=== PATIENT | female | born 1970 | race Caucasian/White ===

== ENCOUNTER 2016-03-13 09:19 | Emergency (ER) ==
[2016-03-13 09:29] VITALS: BP 162/88; TEMP 99.7; BMI 30.7
[2016-03-13] MEDS ORDERED: ROCEPHIN 1 GM in SODIUM CHLORIDE 50 ML IV STA (09:43)
--- NOTE | 2016-03-13 09:44 | ED.PDOC ---
General ED Provider: Dr. ABHAY HESS Chief Complaint: Tooth Problem Stated Complaint: L face swollen; pain. On Clinda since yesterday AM (Dentist) . Much worse this AM. Time Seen by Physician: 09:35 Mode of Arrival: Walk-In Information Source: Patient Exam Limitations: No limitations Primary Care Provider: JAYNE GALINDO Nursing and Triage Documentation Reviewed and Agree: Yes Review of Systems - Review Of Systems Constitutional: Reports: No symptoms Eyes: Reports: No symptoms Ears, Nose, Mouth, Throat: Reports: No symptoms Respiratory: Reports: No symptoms All Other Systems: Reviewed and Negative Past Medical History - Past Medical History Previously Healthy: Yes Endocrine: Reports: Unknown Cardiovascular: Reports: Unknown Respiratory: Reports: Unknown Hematological: Reports: Unknown Gastrointestinal: Reports: Unknown Genitourinary: Reports: Unknown Neuro/Psych: Reports: Unknown Musculoskeletal: Reports: Unknown Cancer: Reports: Unknown Last Menstrual Period: february 27 - Surgical History General Surgical History: Reports: Unknown - Family History Family History: Reports: Unknown - Social History Smoking Status: Current every day smoker, Heavy tobacco smoker Hx Substance Use: No Alcohol Screening: None Physical Exam - Physical Exam Appearance: Ill-appearing Ill-appearing: Mild Pain Distress: Mild Eyes: TOR, EOMI, Conjunctiva clear ENT: Erythema (Gingival upper Left; swelling L maxillary) Respiratory: Airway patent Skin: Warm, Dry, Normal color Neurological: Sensation intact, Motor intact Psychiatric: Affect appropriate, Mood appropriate Interpretation - Radiology Interpretation Radiology Interpretation By: Radiologist Radiology Results: Positive Exam Interpreted: Other (CT maxilofacial) Xray Comments: findings involving L maxillary dentition; swelling L face Critical Care Note - Critical Care Note Total Time (mins): 35 Course - Course Vital Signs: Temp Pulse Resp BP Pulse Ox 03/13/16 09:20 99.7 F H 94 H 18 162/88 H 98 Departure - Departure Time of Disposition: 11:35 Disposition: HOME SELF-CARE Discharge Problem: Abscess, dental Instructions: Dental Abscess (ED) Condition: Good Pt referred to PMD for follow-up: Yes (Follow up with dentist) Additional Instructions: Continue Clindamyacin - take the Keflex prescription added today. Use your pain medications as previously instructed by provider or dentist. May also use lidocaine as per prescription. Allergies/Adverse Reactions: Allergies No Known Allergies Allergy (Verified 03/13/16 09:27) Home Medications: Ambulatory Orders Gabapentin [Neurontin] 300 mg PO TID #90 tab-cap 11/29/14 Hydrocodone/Acetaminophen [[place] 7.5-325 Tablet] 1 each PO TID PRN #90 tab-cap 11/29/14 Clindamycin HCl 300 mg PO TID 03/13/16 Disposition Discussed With: Patient
[2016-03-13] MEDS ORDERED: MORPHINE 2 MG/ML SYRINGE IVP STA ×2 (09:50→10:44)
[2016-03-13] MEDS ORDERED: ZOFRAN ODT PO STA (09:50)
[2016-03-13] MEDS ORDERED: ROCEPHIN ONE (09:54)
--- NOTE | 2016-03-13 10:26 | CT ---
EXAM: CT scan of the facial bones without contrast HISTORY: Left facial pain swelling TECHNIQUE: Imaging of the facial bones was performed without contrast. Axial images and sagittal a nd coronal as reconstructions were provided for interpretation. FINDINGS: The orbital floor, inferior orbital rim appear intact. No acute fractures are seen withi n the medial and lateral ramirez of the orbits. The nasal bones, and zygoma appear intact. No acute fractures are seen within the maxilla and mandible. There is mucosal thickening seen within the lef t maxillary sinus. There is prominent left-sided facial swelling. The findings are seen along the left side of the louie ek and along the mandible.. Apical lucent changes are seen along the dentition of the left maxilla. There is a carious appearance to the first left maxillary molar seen on sagittal reconstruction im age number 21 and 22. There is near complete destruction of the crown of the first left maxillary mo lar. The parotid glands, and submandibular glands appear normal. No acute abnormalities are seen within the floor the mouth. The soft tissues of the nasopharynx, tonsils, epiglottis, and tongue base appe ar normal. IMPRESSION: There is prominent left-sided facial swelling likely due to odontogenic infection. Per iapical lucencies are identified along the dentition of the left maxilla. There are prominent cario us changes seen along the first left maxillary molar as described above. No definite fluid collecti ons are seen within the soft tissues of the face.
== END 2016-03-13 11:50 | disposition home or self-care (01) ==
LOC: ED 09:19
DX: K04.7 Periapical abscess without sinus (principal); F17.210 Nicotine dependence, cigarettes, uncomplicated
CPT/HCPCS: 96365; 96376; 99283

== ENCOUNTER 2018-05-09 08:26 | Outpatient (CLI) | END 2018-05-09 08:27 | disposition home or self-care (01) | LOC: LAB 08:26 | PROVIDERS: ATTEND Nurse Practitioner | DX: Z79.1 Long term (current) use of non-steroidal anti-inflammatories (NSAID) (principal) | CPT/HCPCS: 36415; 80053; 82248; 84100 ==

== ENCOUNTER 2018-10-08 12:50 | Emergency (ER) ==
[2018-10-08 12:58] VITALS: BP 126/85; TEMP 99.1; BMI 32.3
--- NOTE | 2018-10-08 13:31 | DI ---
EXAM: Four views of the right knee. History: Right knee pain. Findings: No acute fracture or dislocation. Old healed fracture deformity of the right proximal fib ular shaft. Joint spaces are preserved. Mild superior patellar enthesiopathy. Impression: No acute osseous abnormality
--- NOTE | 2018-10-08 13:43 | ED.PDOC ---
General ED Provider: Dr. CHELITA JOSUE-ER Chief Complaint: Knee Pain/Injury Stated Complaint: i hurt my knee Time Seen by Physician: 12:55 Mode of Arrival: Walk-In Information Source: Patient Exam Limitations: No limitations Primary Care Provider: YONNY PERKINS Nursing and Triage Documentation Reviewed and Agree: Yes Does patient meet sepsis criteria?: No System Inflammatory Response Syndrome: Not Applicable Sepsis Protocol: For patient's 13 years and over: Temp is 96.8 and below OR 101 and greater Pulse >90 BPM Resp >20/minute Acutely Altered Mental Status Are patient's symptoms suggestive of a new infection, such as: -Pneumonia -Skin, Soft Tissue -Endocarditis -UTI -Bone, Joint Infection -Implantable Device -Acute Abdominal Infection -Wound Infection -Meningitis -Blood Stream Catheter Infection -Unknown Musculoskeletal Complaint Exam - Knee Pain Complaint/Exam Mechanism of Injury: Reports: No known trauma Onset/Duration: several hours Symptoms Are: Still present Onset of Pain: Reports: Immediate Initial Severity: Mild Current Severity: Mild Location: Reports: Discrete Character: Reports: Dull, Aching, Stiffness Aggravating: Reports: Movement, Weight bearing, Prolonged standing Associated Signs and Symptoms: Denies: Swelling, Redness, Bruising, Fever, Weakness, Numbness, Tingling Able to Bear Weight: No Knee Findings: Present: Tenderness, Limited range of motion Sherwin Test Positive: No Heather Test Positive: No Differential Diagnoses: Internal Derangement Review of Systems - Review Of Systems Constitutional: Reports: No symptoms Eyes: Reports: No symptoms Ears, Nose, Mouth, Throat: Reports: No symptoms Respiratory: Reports: No symptoms Cardiac: Reports: No symptoms GI: Reports: No symptoms : Reports: No symptoms Musculoskeletal: Reports: Joint pain Skin: Reports: No symptoms Neurological: Reports: No symptoms Endocrine: Reports: No symptoms Hematologic/Lymphatic: Reports: No symptoms All Other Systems: Reviewed and Negative Past Medical History - Past Medical History Previously Healthy: Yes Endocrine: Reports: Unknown Cardiovascular: Reports: Unknown Respiratory: Reports: Unknown Hematological: Reports: Unknown Gastrointestinal: Reports: Unknown Genitourinary: Reports: Unknown Neuro/Psych: Reports: Unknown Musculoskeletal: Reports: Unknown Cancer: Reports: Unknown Last Menstrual Period: 1 month - Surgical History General Surgical History: Reports: Unknown - Family History Family History: Reports: Unknown - Social History Smoking Status: Current every day smoker, Heavy tobacco smoker Hx Substance Use: No Alcohol Screening: None - Immunizations Tetanus Shot up to Date: No Physical Exam - Physical Exam Appearance: Well-appearing, No pain distress, Well-nourished Pain Distress: Mild Eyes: TOR, EOMI, Conjunctiva clear ENT: Ears normal, Nose normal, Oropharynx normal Neck: Supple Respiratory: Airway patent Cardiovascular: RRR, Pulses normal, No rub, No murmur GI/: Soft, Nontender, No masses, Bowel sounds normal, No Organomegaly Musculoskeletal: Limited ROM Skin: Warm, Dry, Normal color Neurological: Sensation intact, Motor intact, Reflexes intact, Cranial nerves intact, Alert, Oriented Psychiatric: Affect appropriate, Mood appropriate Interpretation - Radiology Interpretation Radiology Interpretation By: Radiologist Radiology Results: Negative Critical Care Note - Critical Care Note Total Time (mins): 0 Course - Course Orders, Labs, Meds: Orders Category Date Time Status CRUTCHES [ED CRUTCHES] .ONCE EMERGENCY 10/08/18 13:39 Active ED SPLINT APPLICATION .ONCE EMERGENCY 10/08/18 13:39 Active KNEE, RIGHT 4 VIEWS Stat RADS 10/08/18 13:00 Completed Vital Signs: Temp Pulse Resp BP Pulse Ox 10/08/18 12:50 99.1 F 90 24 126/85 96 Departure - Departure Time of Disposition: 13:41 Disposition: HOME SELF-CARE Discharge Problem: Knee pain Instructions: Knee Pain (ED) Condition: Good Pt referred to PMD for follow-up: Yes IPMP verified?: No Additional Instructions: stay in immoblizer and crutches---=f/u with pcp==consider referral to ortho or mri of the knee Allergies/Adverse Reactions: Allergies No Known Allergies Allergy (Verified 10/08/18 13:03) Home Medications: Ambulatory Orders Gabapentin [Neurontin] 600 mg PO QID #90 tab-cap 11/29/14 Hydrocodone/Acetaminophen [[place] 7.5-325 Tablet] 1 each PO TID PRN #90 tab-cap 11/29/14 Diclofenac Sodium 75 mg PO BID 10/08/18 Disposition Discussed With: Patient, Family
== END 2018-10-08 13:53 | disposition home or self-care (01) ==
LOC: ED 12:50
DX: M25.561 Pain in right knee (principal); F17.210 Nicotine dependence, cigarettes, uncomplicated
CPT/HCPCS: 99283

== ENCOUNTER 2022-02-08 15:52 | Observation (INO) ==
--- NOTE | 2022-02-08 15:55 | ED.PDOC ---
General ED Provider: Dr. EMMANUEL NOLEN MD Chief Complaint: Bite Stated Complaint: Patient suffered a dog bite to the left hand yesterday. The dog is hers and has been rabies vaccinated. She complains of increasing swelling, pain and erythema of the left hand. Time Seen by Provider: 02/08/22 15:54 Primary Care Provider: SARA CAAL MD Nursing and Triage Documentation Reviewed and Agree: Yes Does patient meet sepsis criteria?: No System Inflammatory Response Syndrome: Not Applicable Sepsis Protocol: For patient's 13 years and over: Temp is 96.8 and below OR 101 and greater Pulse >90 BPM Resp >20/minute Acutely Altered Mental Status Are patient's symptoms suggestive of a new infection, such as: -Pneumonia -Skin, Soft Tissue -Endocarditis -UTI -Bone, Joint Infection -Implantable Device -Acute Abdominal Infection -Wound Infection -Meningitis -Blood Stream Catheter Infection -Unknown Trauma/Injury Complaint Exam Bite Injury Complaint/Exam Location of Bite: left hand Bite Occured: one day ago Symptoms Are: Still present Type of Bite: Reports Pet animal (dog) Animal Immunized: Reports Yes Initial Severity: Mild Current Severity: Severe Character: Reports Puncture Aggravating: Reports Exertion Alleviating: Reports Rest Associated Signs and Symptoms: Reports Erythema, Swelling and Limited ROM Animal Available for Observation: Yes Infection/Sepsis Risk Factors: Present Full Thickness-Puncture, Delay in initial tx and Immunocompromised patient Bite Findings: Present Erythema, Swelling and Tenderness Wound Description: Present Puncture wound Drainage: Present None Review of Systems Review Of Systems Constitutional: Reports No symptoms Eyes: Reports No symptoms Ears, Nose, Mouth, Throat: Reports No symptoms Respiratory: Reports No symptoms Cardiac: Reports No symptoms GI: Reports No symptoms : Reports No symptoms Musculoskeletal: Reports Other (left hand swelling, erythema and pain) Skin: Reports No symptoms Neurological: Reports No symptoms Endocrine: Reports No symptoms Hematologic/Lymphatic: Reports No symptoms All Other Systems: Reviewed and Negative [facility] Medical History Arthritis Chest pain of uncertain etiology Heart palpitations Other specified events, undetermined intent, initial encounter Pain in joint of left shoulder region Family History Mother Diabetes SON A-fib Other Social History Smoking and tobacco status: Current every day smoker Quit status: considering quitting Second hand smoke exposure: Yes Smoking risk assessment performed: No Alcohol intake: never Substance use type: does not use Grisel/jain: none Special grisel needs: No Agree to transfusion: Yes Adopted: No Caregiver/support person: No Foster care: No Household members: family Housing: house Number of children: 3 Number of grandchildren: 3 Highest education level completed: high school graduate Financial difficulty paying for basics: not applicable service: No FPC: No Current occupational status: employed 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 Current occupational exposures/hazards: Yes Pets and animals: Yes Leisure activites: music and games History of recent travel: No Sexually active: No Do you think of yourself as: straight/heterosexual Current gender identity: female Seatbelt use: always Helmet use: No Drives intoxicated or rides with intoxicated lyft driver: No Water heater temperature set < 120 degrees: Yes Working smoke detector in home: Yes Fire extinguisher in home: Yes Carbon monoxide detector in home: Yes Firearms in home: Yes Surgical History History of tubal ligation Status post cholecystectomy Female Reproductive History Menstrual Hx Hysterectomy: No Hx Tubal Ligation: Yes Physical Exam Physical Exam Appearance: Reports Well-appearing, Well-nourished and Obese Ill-appearing: None Pain Distress: Mild Eyes: Reports Not Examined ENT: Reports Not Examined Neck: Not Examined Respiratory: Reports Not Examined Cardiovascular: Reports Not Examined GI/: Reports Not Examined Musculoskeletal: Reports Other (puncture wounds dorsal aspect of the left hand and palmar aspect of the left hand, moderate swelling of the left hand;especially dorsally, decreased flexion ROM of digits, moderate tenderness, no fluctuance or drainage) Skin: Reports Not Examined Neurological: Reports Sensation intact, Motor intact, Alert and Oriented Psychiatric: Reports Affect appropriate and Mood appropriate Interpretation Radiology Interpretation Radiology Interpretation By: Radiologist Exam Interpreted: CT Scan (left hand with soft tissue swelling and multiple soft tissue gas collections palmar and dorsal aspect of hand) Physician Notification Case Discussed Physician Notified: hand surgeon [facility] Time of Notification: 18:55 Comments: Have contacted multiple hospitals and there are no beds available for transfer. In addition, there is no EMS available for patient transfer due to weather. Patient's care was discussed with a hand surgeon at [facility] and they recommended admitting her for IV antibiotics and observation as there currently is no drainable fluid collection identified on CT scan. She will be observed and reevaluated. Critical Care Note Critical Care Note Total Critical Care Time (mins): 0 Course Course Orders, Labs, Meds: Lab Review 02/08/22 17:25 SARS CoV-2 RNA Rapid CRISTINA Negative Orders Category Date Time Status Saline Lock [ED IV/MEDIPORT/POWERPORT] .ONCE EMERGENCY 02/08/22 17:13 Active COVID [SARS COV-2 RNA RAPID CRISTINA] Stat LAB 02/08/22 17:25 Completed 0.9 % Sodium Chloride [Saline Flush] MEDS 02/08/22 17:13 Active 1 syr IVF PRN PRN Amoxicillin/Potassium Clav [Augmentin 875-125 mg Tab] MEDS 02/08/22 16:08 Discontinued 1 tab PO ONCE STA Ampicillin Sodium/Sulbactam Na [Unasyn] MEDS 02/08/22 17:53 Discontinued 3 gm .ROUTE .STK-MED ONE Ampicillin Sodium/Sulbactam Na [Unasyn] 3 gm MEDS 02/08/22 17:13 Discontinued 0.9 % Sodium Chloride [Sodium Chloride 100Ml] 100 ml IV ONCE Ketorolac Tromethamine [Toradol] MEDS 02/08/22 18:05 Discontinued 60 mg IM ONCE STA Tetanus and Diphtheria Tox/Pf [Tenivac] MEDS 02/08/22 17:13 Discontinued 0.5 ml IM .ONCE ONE CT HAND LEFT WITHOUT CONTRAST Stat RADS 02/08/22 16:07 Completed Medications Generic Name Dose Route Start Last Admin Trade Name Freq PRN Reason Stop Dose Admin Sodium Chloride 1 syr 02/08/22 17:13 0.9% Sodium Chloride 10 Ml Disp.Syrin IVF PRN PRN To flush IV Discontinued Medications Generic Name Dose Route Start Last Admin Trade Name Freq PRN Reason Stop Dose Admin Amoxicillin/Clavulanate Potassium 1 tab 02/08/22 16:08 02/08/22 16:30 Amoxicillin/Potassium Clav 875/125 Mg Tablet PO 02/08/22 16:09 1 tab ONCE STA Administration Ampicillin Sodium/Sulbactam 100 mls @ 100 mls/hr 02/08/22 17:13 02/08/22 18:03 Sodium 3 gm/ Sodium Chloride IV 12/26/22 18:12 100 mls/hr ONCE STA Administration Ketorolac Tromethamine 60 mg 02/08/22 18:05 02/08/22 18:20 Ketorolac Tromethamine 60 Mg/2 Ml Vial IM 02/08/22 18:06 60 mg ONCE STA Administration Tetanus/Diphtheria Toxoids Adsorbed 0.5 ml 02/08/22 17:13 02/08/22 18:20 Tetanus And Diphtheria Tox/Pf 0.5 Ml Disp.Syrin IM 02/08/22 17:14 0.5 ml .ONCE ONE Administration Vital Signs: Temp Pulse Resp BP Pulse Ox 02/08/22 15:54 98.6 F 85 18 117/78 94 L Discharge Plan Discharge Patient Disposition: PLACED OBSERVATION Discharge Problem: Infection of hand due to bite Instructions: Animal Bite (ED) Prescriptions: No Action gabapentin [Neurontin] 300 MG capsule 600 mg PO QID Qty: 90 Rx Instructions: Dr. Zimmerman-Pain Management baclofen 10 mg tablet See Rx Instructions .ROUTE .COMPLEX Qty: 90 1RF Dose Instruction: TAKE ONE TABLET THREE TIMES DAILY Rx Instructions: TAKE ONE TABLET THREE TIMES DAILY atorvastatin 40 mg tablet See Rx Instructions .ROUTE .COMPLEX Qty: 30 2RF Dose Instruction: TAKE ONE TABLET DAILY Rx Instructions: TAKE ONE TABLET DAILY clobetasol 0.05 % shampoo 1 applic topical QHS 28 Days Qty: 118 0RF Rx Instructions: Leave in place for 15 minutes, then add water, lather, and rinse thoroughly. Limit treatment to 4 consecutive weeks. coal tar 2 % ointment 1 applic topical BID-QID PRN (Reason: dry skin) Qty: 113.4 0RF hydrocodone-acetaminophen 10-325 mg tablet 1 tab PO Q8H PRN (Reason: Pain) Orencia ClickJect 125 mg/mL auto-injector 125 mg subcut QWEEK lamotrigine 25 mg tablet See Rx Instructions .ROUTE .COMPLEX Qty: 60 1RF Rx Instructions: 25mg PO QD x 14 days, then 50mg PO QD trazodone 100 mg tablet 100 mg PO QHS PRN (Reason: insomnia) Qty: 90 0RF Did you review [place] CAN RECONDITIONER?: No Discussed opioids are addictive and Narcan is available by prescription or from pharmacy.: No ED Provider: EMMANUEL NOLEN Condition: Stable Physician Progress Note: []
[2022-02-08] MEDS ORDERED: AUGMENTIN 875-125 MG TAB PO STA (16:08)
--- NOTE | 2022-02-08 17:00 | CT ---
EXAM: CT left hand without intravenous contrast 01/19/2022. Sagittal and coronal reformatted images obtained HISTORY: Dog bite with swelling and pain COMPARISON: 10/28/2020 FINDINGS: There is no evidence acute fracture or dislocation. Advanced degenerative changes of the basilar joint. Edematous appearance is present throughout the dorsal soft tissues. Edema is also present within the superficial soft tissues at the palmar aspect of the hand. There is a solitary small focus of gas a t the palmar aspect of the hand within the subcutaneous fat as seen on axial series image 38. Multi focal soft tissue gas within the dorsal superficial soft tissues. This is located adjacent to the se cond and third metacarpals. This also extends into the soft tissues between the base of the second a nd third proximal phalanx. There is no evidence of radiopaque foreign body. No organized fluid collection. IMPRESSION: 1. No acute osseous abnormality. Advanced degenerative change of the basilar joint. 2. Edema and soft tissue gas within the palmar and dorsal aspect of the hand as described above. All CT scans are performed using dose optimization techniques as appropriate to the performed exam an d include at least one of the following: Automated exposure control, adjustment of the mA and/or kV according t o size, and the use of iterative reconstruction technique.
[2022-02-08] MEDS ORDERED: UNASYN 3 GM in SODIUM CHLORIDE 100ML 100 ML IV STA (17:13)
[2022-02-08] MEDS ORDERED: TENIVAC IM ONE (17:13)
[2022-02-08] MEDS ORDERED: UNASYN ONE ×2 (17:53→23:50)
[2022-02-08 18:05] LABS: SARS COV-2 RNA RAPID NAAT NEGATIVE (NEGATIVE)
[2022-02-08] MEDS ORDERED: TORADOL IM STA (18:05)
--- NOTE | 2022-02-08 19:08 | PCM ---
Chief Complaint Chief Complaint: dog bite left hand History of Present Illness History of Present Illness: Patient bitten on the left hand by a dog one day ago. She presents now with swelling, erythema and pain involving the hand. Denies fever. The dog was hers and is rabies vaccinated. Tetanus immunization is out of date. Review of Systems Constitutional: Reports No symptoms Eyes: Reports No symptoms Ears: Reports No symptoms Nose: Reports No symptoms Throat: Reports No symptoms Mouth: Reports No symptoms Respiratory: Reports No symptoms Cardiovascular: Reports No symptoms Gastrointestinal: Reports No symptoms Genitourinary: Reports No symptoms Neurological: Reports No symptoms Musculoskeletal: Reports Other (left hand swelling, erythema and pain) Skin: Reports No symptoms Immunology: Reports No symptoms Hematology: Reports No symptoms Endocrine: Reports No symptoms Psychiatric: Reports No symptoms Allergies Allergies Allergy/AdvReac Type Severity Reaction Status Date / Time No Known Allergies Allergy Verified 01/25/22 10:17 [facility] Medical History Arthritis Chest pain of uncertain etiology Heart palpitations Other specified events, undetermined intent, initial encounter Pain in joint of left shoulder region Surgical History History of tubal ligation Status post cholecystectomy Family History Mother Diabetes SON A-fib Other Social History Smoking and tobacco status: Current every day smoker Quit status: considering quitting Second hand smoke exposure: Yes Smoking risk assessment performed: No Alcohol intake: never Substance use type: does not use Grisel/restoration: none Special grisel needs: No Agree to transfusion: Yes Adopted: No Caregiver/support person: No Foster care: No Household members: family Housing: house Number of children: 3 Number of grandchildren: 3 Highest education level completed: high school graduate Financial difficulty paying for basics: not applicable service: No shelter: No Current occupational status: employed 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 Current occupational exposures/hazards: Yes Pets and animals: Yes Leisure activites: music and games History of recent travel: No Sexually active: No Do you think of yourself as: straight/heterosexual Current gender identity: female Seatbelt use: always Helmet use: No Drives intoxicated or rides with intoxicated route delivery service driver: No Water heater temperature set < 120 degrees: Yes Working smoke detector in home: Yes Fire extinguisher in home: Yes Carbon monoxide detector in home: Yes Firearms in home: Yes Medications Medications: Medications Generic Name Dose Route Start Last Admin Trade Name Freq PRN Reason Stop Dose Admin Sodium Chloride 1 syr 02/08/22 17:13 0.9% Sodium Chloride 10 Ml Disp.Syrin IVF PRN PRN To flush IV Body Composition Height: 5 ft 6 in Weight: 92.714 kg Body Mass Index (BMI): 33.0 Vital Signs Temperature: 98.6 F Pulse Rate: 85 Respiratory Rate: 18 Blood Pressure: 117/78 O2 Sat by Pulse Oximetry: 94 Physical Examination Appearance: Reports Well-appearing, No pain distress and Well-nourished Ill-appearing: None Pain Distress: None Eyes: Reports Not Examined ENT: Reports Nose normal and Oropharynx normal Neck: Supple Respiratory: Reports Airway patent, Breath sounds clear and Breath sounds equal Cardiovascular: Reports RRR, No rub and No murmur GI/: Reports Soft, Nontender, No masses and Bowel sounds normal Musculoskeletal: Reports Normal strength and Other (Left hand with puncture wounds on palmar and dorsal aspects. Moderate swelling. No flunctuance or drainage. Flexion of digits greatly reduced. Moderate tenderness.) Skin: Reports Warm and Dry Neurological: Reports Sensation intact, Motor intact, Alert and Oriented Psychiatric: Reports Affect appropriate and Mood appropriate Lab/Tests/Diagnostic Imaging Lab/Tests/Diagnostic Imaging: Lab Review 02/08/22 17:25 SARS CoV-2 RNA Rapid CRISTINA Negative Orders Category Date Time Status Saline Lock [ED IV/MEDIPORT/POWERPORT] .ONCE EMERGENCY 02/08/22 17:13 Active COVID [SARS COV-2 RNA RAPID CRISTINA] Stat LAB 02/08/22 17:25 Completed 0.9 % Sodium Chloride [Saline Flush] MEDS 02/08/22 17:13 Active 1 syr IVF PRN PRN Amoxicillin/Potassium Clav [Augmentin 875-125 mg Tab] MEDS 02/08/22 16:08 Discontinued 1 tab PO ONCE STA Ampicillin Sodium/Sulbactam Na [Unasyn] MEDS 02/08/22 17:53 Discontinued 3 gm .ROUTE .STK-MED ONE Ampicillin Sodium/Sulbactam Na [Unasyn] 3 gm MEDS 02/08/22 17:13 Discontinued 0.9 % Sodium Chloride [Sodium Chloride 100Ml] 100 ml IV ONCE Ketorolac Tromethamine [Toradol] MEDS 02/08/22 18:05 Discontinued 60 mg IM ONCE STA Tetanus and Diphtheria Tox/Pf [Tenivac] MEDS 02/08/22 17:13 Discontinued 0.5 ml IM .ONCE ONE CT HAND LEFT WITHOUT CONTRAST Stat RADS 02/08/22 16:07 Completed Medications Generic Name Dose Route Start Last Admin Trade Name Freq PRN Reason Stop Dose Admin Sodium Chloride 1 syr 02/08/22 17:13 0.9% Sodium Chloride 10 Ml Disp.Syrin IVF PRN PRN To flush IV Discontinued Medications Generic Name Dose Route Start Last Admin Trade Name Freq PRN Reason Stop Dose Admin Amoxicillin/Clavulanate Potassium 1 tab 02/08/22 16:08 02/08/22 16:30 Amoxicillin/Potassium Clav 875/125 Mg Tablet PO 02/08/22 16:09 1 tab ONCE STA Administration Ampicillin Sodium/Sulbactam 100 mls @ 100 mls/hr 02/08/22 17:13 02/08/22 18:03 Sodium 3 gm/ Sodium Chloride IV 02/08/22 18:12 100 mls/hr ONCE STA Administration Ketorolac Tromethamine 60 mg 02/08/22 18:05 02/08/22 18:20 Ketorolac Tromethamine 60 Mg/2 Ml Vial IM 02/08/22 18:06 60 mg ONCE STA Administration Tetanus/Diphtheria Toxoids Adsorbed 0.5 ml 02/08/22 17:13 02/08/22 18:20 Tetanus And Diphtheria Tox/Pf 0.5 Ml Disp.Syrin IM 02/08/22 17:14 0.5 ml .ONCE ONE Administration Assessment (1) Infection of hand due to bite: Status: Acute Code(s): S61.459A - Open bite of unspecified hand, initial encounter; L08.9 - Local infection of the skin and subcutaneous tissue, unspecified; W54.0XXA - Bitten by dog, initial encounter SNOMED Code(s): 113033135 Plan Plan: Patient will be admitted for ovservation. She will have her hand elevated and will receive IV Unasyn. She may require surgical I&D of the hand.
[2022-02-08] MEDS ORDERED: NORCO 10-325 PO PRN (19:09)
[2022-02-08 21:47] LABS: BASOPHILS % (AUTO) 0.5 % (0.0-3.0); EOSINOPHILS # (AUTO) 0.1 K/ul (0.0-0.7); EOSINOPHILS % (AUTO) 1.5 % (0.0-7.0); HEMATOCRIT 40.1 % (37.0-47.0); HEMOGLOBIN 13.4 g/dl (12.0-16.0); IMMATURE GRANULOCYTE % (AUTO) 0.3 % (0.0-5.0); LYMPHOCYTES # (AUTO) 2.8 K/uL (0.60-3.4); LYMPHOCYTES % (AUTO) 37.5 (10.0-50.0); MEAN CORPUSCULAR HEMOGLOBIN 31.3 pg (27.0-31.0); MEAN CORPUSCULAR HGB CONC 33.4 (31.8-35.4); MEAN CORPUSCULAR VOLUME 93.7 fl (81.0-99.0); MONOCYTES # (AUTO) 0.4 K/uL (0.4-2.0); MONOCYTES % (AUTO) 5.7 (0-10); NEUTROPHILS % (AUTO) 54.5 % (42.2-75.2); PLATELET COUNT 164 10^3/uL (140-440); RDW COEFFICIENT OF VARIATION 12.8 % (11.6-14.8); RED BLOOD COUNT 4.28 10^6/ul (4.20-5.40); WHITE BLOOD COUNT 7.39 K/ul (4.6-10.2)
[2022-02-08 21:58] LABS: BLOOD UREA NITROGEN 11.9 mg/dL (7-17); CALCIUM 9.42 mg/dL (8.4-10.2); CARBON DIOXIDE 29.3 mmol/L (22-30.0); CHLORIDE 102.3 mmol/L (98-107); CREATININE 0.65 mg/dL (0.60-1.30); GLUCOSE 135.9 mg/dL (74-106); POTASSIUM 3.27 mmol/L (3.5-5.1); SODIUM 140.3 mmol/L (134.5-145)
[2022-02-08] MEDS ORDERED: COAL TAR TP PRN (21:58)
[2022-02-08] MEDS ORDERED: LIPITOR PO SCH (22:02)
[2022-02-08] MEDS ORDERED: DESYREL PO PRN (22:05)
[2022-02-08] MEDS ORDERED: LAMICTAL PO SCH (22:15)
[2022-02-08] MEDS: NEURONTIN PO SCH ×2 (22:24→22:28)
[2022-02-08] MEDS: BACLOFEN PO SCH (22:25)
[2022-02-08 22:34] VITALS: BMI 32.3
[2022-02-08] MEDS ORDERED: K-DUR PO ONE (22:56)
[2022-02-08] MEDS ORDERED: UNASYN 3 GM in SODIUM CHLORIDE 100ML 100 ML IV SCH (23:30)
[2022-02-09] MEDS: UNASYN 3 GM in SODIUM CHLORIDE 100ML 100 ML IV SCH ×2 (00:06→06:09)
[2022-02-09 05:15] LABS: BASOPHILS % (AUTO) 0.3 % (0.0-3.0); EOSINOPHILS # (AUTO) 0.2 K/ul (0.0-0.7); EOSINOPHILS % (AUTO) 2.4 % (0.0-7.0); HEMATOCRIT 38.4 % (37.0-47.0); HEMOGLOBIN 12.8 g/dl (12.0-16.0); IMMATURE GRANULOCYTE % (AUTO) 0.2 % (0.0-5.0); LYMPHOCYTES # (AUTO) 3.2 K/uL (0.60-3.4); LYMPHOCYTES % (AUTO) 47.7 (10.0-50.0); MEAN CORPUSCULAR HEMOGLOBIN 31.7 pg (27.0-31.0); MEAN CORPUSCULAR HGB CONC 33.3 (31.8-35.4); MONOCYTES # (AUTO) 0.5 K/uL (0.4-2.0); MONOCYTES % (AUTO) 7.1 (0-10); NEUTROPHILS # (AUTO) 2.8 K/ul (2.0-6.9); NEUTROPHILS % (AUTO) 42.3 % (42.2-75.2); PLATELET COUNT 161 10^3/uL (140-440); RDW COEFFICIENT OF VARIATION 12.7 % (11.6-14.8); RED BLOOD COUNT 4.04 10^6/ul (4.20-5.40); WHITE BLOOD COUNT 6.66 K/ul (4.6-10.2)
[2022-02-09 05:26] LABS: ALBUMIN 4.19 g/dL (3.5-5.0); ALKALINE PHOSPHATASE 138.1 U/L (38-126); ASPARTATE AMINO TRANSFERASE 69.4 U/L (14-36); BILIRUBIN,TOTAL 0.69 mg/dL (0.2-1.3); BLOOD UREA NITROGEN 17.1 mg/dL (7-17); CALCIUM 9.39 mg/dL (8.4-10.2); CARBON DIOXIDE 32.1 mmol/L (22-30.0); CHLORIDE 104.1 mmol/L (98-107); CREATININE 0.73 mg/dL (0.60-1.30); GLUCOSE 106.5 mg/dL (74-106); POTASSIUM 3.74 mmol/L (3.5-5.1); SODIUM 139.4 mmol/L (134.5-145); TOTAL PROTEIN 8.12 g/dL (6.3-8.2)
[2022-02-09] MEDS ORDERED: UNASYN ONE (05:30)
[2022-02-09] MEDS ORDERED: BACLOFEN PO SCH (09:00)
[2022-02-09] MEDS: BACLOFEN PO SCH (09:11)
[2022-02-09] MEDS: NEURONTIN PO SCH ×2 (09:11→14:51)
--- NOTE | 2022-02-09 10:02 | DI ---
EXAM: Left hand, three views HISTORY: Swelling COMPARISON: None. FINDINGS / IMPRESSION: The visualized osseous structures appear intact. Anatomic alignment appears within normal limits. There is no evidence of fracture or dislocation. Advanced degenerative changes of the basilar joint. Diffuse dorsal soft tissue swelling throughout the wrist and hand. No acute osseous abnormality.
[2022-02-09 10:17] VITALS: BP 129/70; TEMP 98.2
[2022-02-09] MEDS ORDERED: UNASYN 3 GM in SODIUM CHLORIDE 100ML 100 ML IV SCH ×3 (12:00)
--- NOTE | 2022-02-09 13:10 | PCM.DC ---
Final Diagnosis: dog bite left hand with cellulitis 40 min spent on discharge summary Physical Exam Appearance: Well-appearing Ill-appearing: None Pain Distress: Mild Eyes: Conjunctiva clear ENT: Not Examined Neck: Not Examined Respiratory: Airway patent Cardiovascular: Not Examined GI/: Not Examined Musculoskeletal: ROM intact Skin: Warm and Dry Neurological: Sensation intact and Motor intact Psychiatric: Affect appropriate (1) Infection of hand due to bite: Status: Acute Code(s): S61.459A - Open bite of unspecified hand, initial encounter; L08.9 - Local infection of the skin and subcutaneous tissue, unspecified; W54.0XXA - Bitten by dog, initial encounter SNOMED Code(s): 026209301 Reason for Hospitalization: left hand infection from dog bite Prognosis/Condition at Discharge: stable Medications at Discharge: augmentin Lab/Diagnostics: wbc 6, K+ 3.7 Education Provided to Patient and Family: wound care, pt alert and oriented x3, nad, leaves ama, pt aware she could lose hand function permanently or from blood poisoning or sepsis from incompletel y treated dog bite infection, pt aware she may return at anytime Follow-ups: see the clinic doctor, return at anytime Discharge Disposition: AMA Hospital Course: improving swelling Plan: see clinic doctor, take augmentin, return at anytime
[2022-02-09] MEDS ORDERED: LAMICTAL PO SCH (21:00)
[2022-02-09] MEDS ORDERED: LIPITOR PO SCH (21:00)
== END 2022-02-09 13:45 | disposition left against medical advice (07) ==
LOC: MEDSURG A 15:52 → ED 15:52 → MEDSURG A 19:58
PROVIDERS: ADMIT Surgery; ATTEND Emergency Medicine Emergency Medical Services
DX: Z79.899 Other long term (current) drug therapy; W54.0XXA Bitten by dog, initial encounter; S61.452A Open bite of left hand, initial encounter; Z51.81 Encounter for therapeutic drug level monitoring; Y93.9 Activity, unspecified; Y99.9 Unspecified external cause status; L08.9 Local infection of the skin and subcutaneous tissue, unspecified; Y92.099 Unspecified place in other non-institutional residence as the place of occurrence of the external cause; Z20.822 Contact with and (suspected) exposure to COVID-19